=== PATIENT | female | born 1965 | race Two or more races ===

== ENCOUNTER 2016-04-19 09:06 | Emergency (ER) | payer BC, OTHER ==
[~2016-04-19] VITALS: Ht 167.6 cm; Wt 83.9 kg
[2016-04-19 09:19] VITALS: BP 130/77
[2016-04-19] MEDS ORDERED: KETOROLAC TROMETH 60MG/2ML VIAL IM ONE (09:45)
== END 2016-04-19 10:37 | disposition home or self-care (01) ==
LOC: ER 09:12
DX: S40.012A Contusion of left shoulder, initial encounter (principal); V49.9XXA Car occupant (driver) (passenger) injured in unspecified traffic accident, initial encounter; Y93.89 Activity, other specified; Y99.8 Other external cause status; Y92.89 Other specified places as the place of occurrence of the external cause
CPT/HCPCS: 73030; 96372; 99284; J1885

== ENCOUNTER 2017-02-08 14:32 | Emergency (ER) | payer OTHER ==
[~2017-02-08] VITALS: Ht 167.6 cm; Wt 88.5 kg
[2017-02-08 15:17] LABS: Basophils # (auto) 0.1 uL; Basophils % (auto) 0.6 % (0.0-2.0); Eosinophils # (auto) 0.2 uL; Eosinophils % (auto) 1.9 % (0.0-7.0); Hematocrit 40.7 % (36.0-46.0); Hemoglobin 13.8 g/dL (12.2-16.2); Lymphocytes # (auto) 2.6 uL; Lymphocytes % (auto) 25.4 % (10.0-50.0); Mean Corpuscular Hgb Conc. 33.9 g/dL (32.0-36.0); Mean Corpuscular Volume 88.6 fL (80.0-100.0); Mean Platelet Volume 8.1 fL (6.9-10.8); Monocytes # (auto) 0.6 uL; Monocytes % (auto) 5.6 % (0.0-12.0); Neutrophils # (auto) 6.8 uL; Neutrophils % (auto) 66.5 % (37.0-80.0); Nucleated Red Blood Cells % 0.1 %; Platelet Count (auto) 241 10^3/uL (140-450); White Blood Cell 10.2 10^3/uL (4.4-10.8)
[2017-02-08 15:46] LABS: Albumin 4.1 g/dL (3.4-5.0); Alkaline Phosphatase 92 U/L (45-117); Amylase 67 U/L (25-115); Anion Gap 9 (5-15); Aspartate Aminotransferase 49 U/L (15-37); BUN/Creatinine Ratio 28.4; Bilirubin, Total 0.4 mg/dL (0.2-1.0); Blood Urea Nitrogen 21 mg/dL (7-18); Calcium 8.9 mg/dL (8.5-10.1); Carbon Dioxide 23 mmol/L (21-32); Chloride 104 mmol/L (98-107); GFR African American 106 mL/min; GFR Non-African American 88 mL/min; Glucose 97 mg/dL (74-106); Potassium 3.6 mmol/L (3.5-5.1); Sodium 136 mmol/L (136-145); Total Protein 7.8 g/dL (6.4-8.2)
[2017-02-08] MEDS ORDERED: PANTOPRAZOLE 40 MG/10 ML VIAL IV ONE (17:15)
[2017-02-08] MEDS ORDERED: ONDANSETRON HCL 4 MG/2 ML VIAL IV ONE (17:15)
[2017-02-08] MEDS ORDERED: HYDROmorphone HCL 2 MG/ML VL IV ONE (17:15)
[2017-02-08] MEDS ORDERED: SODIUM CHLORIDE 0.9% 1,000 ML IV ONE (17:15)
[2017-02-08 17:35] LABS: Urine Bilirubin Negative (Negative); Urine Blood TRACE /uL (Negative); Urine Color Yellow (Yellow); Urine Glucose Normal (Normal); Urine Ketone 1+ (Negative); Urine Nitrite Negative (Negative); Urine RBC 1 /hpf (0 - 4); Urine Squamous Epithelial Cell FEW /hpf (<5); Urine Urobilinogen Normal (Negative); Urine pH 5.5 (5.0-8.0)
[2017-02-08 18:10] VITALS: BP 133/73
== END 2017-02-08 19:02 | disposition home or self-care (01) ==
LOC: ER 14:32
DX: K29.70 Gastritis, unspecified, without bleeding (principal)
CPT/HCPCS: 36415; 71020; 76705; 80053; 81001; 82150; 83690; 84484; 85025; 93005; 96361; 96374; 96375; 99285; C9113; J1170; J2405; J7030

== ENCOUNTER 2023-11-02 16:32 | Emergency (ER) | payer BC, OTHER ==
[~2023-11-02] VITALS: Ht 167.6 cm; Wt 75.0 kg
[2023-11-02] MEDS ORDERED: MORPHINE SULFATE 10 MG/ML INJ 1ML SDV IV ONE (17:30)
[2023-11-02 17:43] LABS: Urine Bacteria None Seen /hpf (None Seen)
[2023-11-02 18:08] LABS: Urine Blood 2+ /uL (Negative); Urine Clarity Clear (Clear); Urine Color Yellow (Yellow); Urine Mucus FEW (None Seen); Urine Protein, UAD TRACE (Negative); Urine Specific Gravity 1.023 (1.001-1.035); Urine Urobilinogen Normal (Negative); Urine WBC 18 /hpf (0 - 5)
[2023-11-02 18:16] LABS: Basophils # (auto) 0 10 ^3/uL (0-0.2); Basophils % (auto) 0.3 % (0.0-2.0); Eosinophils # (auto) 0.1 10 ^3/uL (0-0.8); Eosinophils % (auto) 0.6 % (0.0-7.0); Hematocrit 43.5 % (36.0-46.0); Hemoglobin 14.8 g/dL (12.2-16.2); Lymphocytes # (auto) 1.6 10 ^3/uL (0.4-5.4); Lymphocytes % (auto) 13.1 % (10.0-50.0); Mean Corpuscular Hgb Conc. 33.9 g/dL (32.0-36.0); Mean Corpuscular Volume 85.7 fL (80.0-100.0); Monocytes # (auto) 0.7 10 ^3/uL (0-1.3); Monocytes % (auto) 6.1 % (0.0-12.0); Neutrophils # (auto) 9.7 10 ^3/uL (1.6-8.6); Neutrophils % (auto) 79.9 % (37.0-80.0); Nucleated Red Blood Cells % 0.1 %; Red Blood Cells 5.08 10^6/uL (4.0-5.20); Red Cell Distribution Width 14.1 % (11.8-14.3); White Blood Cell 12.1 10^3/uL (4.4-10.8)
[2023-11-02 18:33] LABS: Alanine Aminotransferase 25 U/L (7-40); Albumin 4.6 g/dL (3.2-4.8); Alkaline Phosphatase 96 U/L (46-116); Anion Gap 7 (5-15); Aspartate Aminotransferase 14 U/L (13-40); BUN/Creatinine Ratio 13.4 (10.0-20.0); Blood Urea Nitrogen 11 mg/dL (9-23); Carbon Dioxide 26 mmol/L (20-30); Chloride 103 mmol/L (98-107); Glucose 89 mg/dL (74-106); Lipase 53 U/L (12-53); Potassium 4.3 mmol/L (3.5-5.1); Sodium 136 mmol/L (136-145)
[2023-11-02 18:34] LABS: Bilirubin, Total 0.9 mg/dL (0.2-1.0); Total Protein 7.5 g/dL (5.7-8.2)
[2023-11-02] MEDS: ONDANSETRON ODT 4 MG TAB PO ONE (18:44)
[2023-11-02] MEDS: MORPHINE SULFATE INJ 2 MG/ml SYRG IV ONE (18:45)
[2023-11-02 18:50] VITALS: PULSE 78; RESP 19; TEMP 97.7; O2SAT 97
[2023-11-02 19:30] VITALS: PULSE 81; RESP 11; O2SAT 92
[2023-11-02 20:22] VITALS: BP 125/74
[2023-11-02] MEDS: fentaNYL CITRATE 100 MCG/2 ML VL IV ONE (20:22)
[2023-11-02] MEDS: cefTRIAXone 1GM/50ML D5W 50 ML IV ONE (20:57)
[2023-11-02] MEDS ORDERED: CEPH250C PO (21:29)
[2023-11-02] MEDS: MAALOX PLUS or MAALOX 30 ML PO ONE (21:50)
== END 2023-11-02 22:00 | disposition home or self-care (01) ==
LOC: ER 16:32
DX: N39.0 Urinary tract infection, site not specified (principal); F17.210 Nicotine dependence, cigarettes, uncomplicated; Z90.710 Acquired absence of both cervix and uterus; Z98.890 Other specified postprocedural states
CPT/HCPCS: 36415; 74176; 76705; 80053; 81001; 83690; 85025; 96365; 96375; 99285; J0696; J2270; J3010; Q0162

== ENCOUNTER 2023-11-04 09:52 | Emergency (ER) | payer BC ==
[~2023-11-04] VITALS: Ht 167.6 cm; Wt 71.3 kg
[~2023-11-04 09:52] MED LIST: CEPH250C PO
[2023-11-04 10:40] LABS: Basophils # (auto) 0 10 ^3/uL (0-0.2); Basophils % (auto) 0.4 % (0.0-2.0); Eosinophils # (auto) 0.1 10 ^3/uL (0-0.8); Eosinophils % (auto) 0.5 % (0.0-7.0); Hemoglobin 14.8 g/dL (12.2-16.2); Lymphocytes % (auto) 9.2 % (10.0-50.0); Mean Corpuscular Hemoglobin 29.6 pg (28.0-32.0); Mean Corpuscular Hgb Conc. 34.4 g/dL (32.0-36.0); Mean Corpuscular Volume 85.8 fL (80.0-100.0); Monocytes # (auto) 0.6 10 ^3/uL (0-1.3); Monocytes % (auto) 5.7 % (0.0-12.0); Neutrophils # (auto) 9.2 10 ^3/uL (1.6-8.6); Neutrophils % (auto) 84.2 % (37.0-80.0); Nucleated Red Blood Cells % 0.1 %; Red Blood Cells 5.01 10^6/uL (4.0-5.20); Red Cell Distribution Width 14.1 % (11.8-14.3)
[2023-11-04 10:48] LABS: Chloride 104 mmol/L (98-107); Potassium 3.8 mmol/L (3.5-5.1); Sodium 138 mmol/L (136-145)
[2023-11-04 10:49] LABS: Anion Gap 8 (5-15); Carbon Dioxide 26 mmol/L (20-30)
[2023-11-04 10:50] LABS: Calcium 10.1 mg/dL (8.7-10.4)
[2023-11-04 10:54] LABS: BUN/Creatinine Ratio 12.3 (10.0-20.0); Blood Urea Nitrogen 9 mg/dL (9-23); Glucose 98 mg/dL (74-106)
[2023-11-04 11:09] VITALS: PULSE 91; RESP 16; TEMP 97.8; O2SAT 99
[2023-11-04] MEDS: MORPHINE SULFATE 4 MG/ML SYR/VIAL IV ONE (11:30)
[2023-11-04] MEDS: SODIUM CHLORIDE 0.9% 1,000 ML IV ONE ×2 (11:30→14:46)
[2023-11-04] MEDS: ONDANSETRON HCL 4 MG/2 ML VIAL IV ONE (11:31)
[2023-11-04] MEDS: cefTRIAXone 1GM/50ML D5W 50 ML IV ONE (14:45)
[2023-11-04] MEDS: PANTOPRAZOLE 40 MG/10 ML VIAL INJ IV ONE (14:45)
[2023-11-04] MEDS: SUCRALFATE 1 GM/10 ML ORAL SUSP PO ONE (14:45)
[2023-11-04] MEDS: HYDROcodone-ACET 5/325MG TAB PO PRN (14:54)
[2023-11-04] MEDS ORDERED: SUCR1TAB31 OR (15:55)
[2023-11-04] MEDS ORDERED: ZOFR4T PO (15:56)
[2023-11-04] MEDS ORDERED: HYDR-4902 PO (15:59)
[2023-11-04 16:05] LABS: Urine Bacteria None Seen /hpf (None Seen)
[2023-11-04 16:15] VITALS: BP 103/51; PULSE 79; RESP 16; O2SAT 95
[2023-11-04 16:32] LABS: Urine Blood 2+ /uL (Negative); Urine Clarity Clear (Clear); Urine Color Yellow (Yellow); Urine Mucus FEW (None Seen); Urine Protein, UAD 1+ (Negative); Urine Urobilinogen Normal (Negative); Urine WBC 22 /hpf (0 - 5); Urine pH 6.5 (5.0-9.0)
[2023-11-04 16:40] LABS: Urine Specific Gravity > 1.035 (1.001-1.035)
[2023-11-04] MEDS ORDERED: ONDANSETRON HCL 4 MG/2 ML VIAL IV ONE (18:00)
== END 2023-11-04 16:36 | disposition short-term general hospital (02) ==
LOC: ER 09:52
DX: R10.9 Unspecified abdominal pain (principal); I10 Essential (primary) hypertension; F17.210 Nicotine dependence, cigarettes, uncomplicated; Z79.899 Other long term (current) drug therapy; Z90.710 Acquired absence of both cervix and uterus
CPT/HCPCS: 36415; 74177; 80048; 81001; 85025; 96361; 96365; 96375; 99285; J0696; J2270; J2405; J2470; J7030